=== PATIENT | female | born 1935 | race Caucasian/White ===

== ENCOUNTER 2020-04-06 18:55 | Emergency (ER) | payer OTHER ==
[~2020-04-06] VITALS: Ht 165.1 cm; Wt 63.5 kg
--- NOTE | ~2020-04-06 | EMS ---
[address] [address] EMS Patient Care Report Name: MIKI BARCENAS Room #: PRE M.R.#: [id number] Admission: Attend Phys: Discharge: Date of : 39 Report #: [id number] THIS REPORT FOR: //name// Report Transmitted: 04/06/2020 18:57 EMS Care Summary [facility] Incident [id number] @ 04/06/2020 18:17 Incident Location [address] [place] [address] Patient MIKI BARCENAS Female, 84 Years 1935 Patient Address [address] [place] [address] Patient History Dementia,Hypertension (HTN),Hyperlipidemia,Depression, Patient Allergies Codeine,Tramadol, Patient Medications Acetaminophen, Trazodone, Amlodipine, Donepezil, Omeprazole, Citalopram, Lovastatin, Chief Complaint "she fell" Disposition Transported No Lights/[place] Dispatch Reason Falls Transported To [facility] Narrative EMS dispatched to a local nursing home home. Upon arrival, EMS is guided to the patients room where she's being assisted by the local fire department. The local fire department relays the patient had an unwitnessed fall from standing [address] [address] EMS Patient Care Report Name: MIKI BARCENAS Room #: PRE Zuhair#: [id number] Admission: Attend Phys: Discharge: Date of : 39 Report #: [id number] height because she "got tripped up on her feet". She didn't lose consciousness and remembers the whole thing. However, she is slightly confused but that's normal for her. The administrative staff supervisor relays that story is correct. The fire department also relays the patient "knocked out a few teeth". The patient is able to communicate with EMS. However, she's very upset and hard to console. When she's able to answer she states she "hurts on the inside of the mouth" and states the reason she fell is because she "got my feet mixed up". Initial assessment is performed on pt by the local fire department. The pt's teeth are placed in a bag of milk. Cervical spine precautions are taken and towel roll is placed. The patient is able to stand and pivot to cot where secured. The patient is moved to MICU where secured. The patient's vitals are monitored en route to local hospital with no change. Report is given to RN and care is transferred without incident. Initial Vitals @18:49P: 84,SpO2: 79, @18:50P: 86,R: 16,BP: 163/107,Pain: 0/10,GCS: 14,SpO2: 98,Revised Trauma: 12, @18:42P: 87,R: 16,BP: 164/77,Pain: 6/10,GCS: 15,Temp: 98F,SpO2: 97,Revised Trauma: 12, Assessments @18:45MENTAL:Person Oriented,Time Oriented,Place Oriented,Event Oriented,SKIN:HEENT:Head/Face: Other,LUNG SOUNDS:General: No Abnormalities,ABDOMEN:General: No Abnormalities,PELVIS//GI:No Abnormalities,EXTREMITIES:Right Arm: Other,Left Arm: No Abnormalities,Left Leg: No Abnormalities,Right Leg: No Abnormalities,PULSE:NEURO:@19:00 Impression Injury of Face Procedures @18:30Surgical Mask on PatientResponse: Unchanged@18:32Spinal Motion RestrictionResponse: UnchangedSucceeded Timeline 18:15,Call Received 18:15,Psap Call 18:17,Dispatched 18:18,En Route 18:27,On Scene 18:30,At Patient 18:30,Surgical Mask on Patient,Response: Unchanged 18:32,Spinal Motion Restriction,Response: UnchangedSucceeded, 18:40,Depart Scene [facility] [address] [place] [address] EMS Patient Care Report Name: MIKI BARCENAS Room #: PRE M.R.#: [id number] Admission: Attend Phys: Discharge: Date of : 39 Report #: [id number] 18:42,BP: 164/77 M,PULSE: 87,RR: 16 R,SPO2: 97 Ox,ETCO2: ,BG: ,PAIN: 6,GCS: 15, 18:49,BP: / M,PULSE: 84,RR: R,SPO2: 79 Ox,ETCO2: ,BG: ,PAIN: ,GCS: , 18:49,At Destination 18:50,BP: 163/107 M,PULSE: 86,RR: 16 R,SPO2: 98 Ox,ETCO2: ,BG: ,PAIN: 0,GCS: 14, 19:07,Call Closed Disclaimer v1.1 Copyright 2020 [employer] This EMS Care Summary contains data elements from the applicable legal record (which may be displayed differently). It is designed to provide pertinent information for the following purposes: continuity of care, clinical quality, and state data reporting. The complete legal record is available to ED staff and administrators of the receiving hospital in [employer]'s Patient Tracker. All data is provided "as is."
[2020-04-06 19:53] LABS: URINE BILIRUBIN NEGATIVE (Negative); URINE BLOOD NEGATIVE (Negative); URINE CLARITY CLEAR; URINE COLOR YELLOW; URINE GLUCOSE-RANDOM* NEGATIVE (Negative); URINE KETONES NEGATIVE (Negative); URINE LEUKOCYTES-REFLEX TRACE (Negative); URINE NITRITE-REFLEX NEGATIVE (Negative); URINE PROTEIN (DIPSTICK) NEGATIVE (Negative); URINE SPECIFIC GRAVITY 1.025 (1.005-1.035)
[2020-04-06 20:24] LABS: ABSOLUTE NEUTROPHILS 9.2 thou/uL (1.4-8.2); BASOPHILS 0.5 % (0.0-2.0); EOSINOPHILS 1.1 % (0.0-3.0); HEMATOCRIT 39.1 % (37.0-47.0); HEMOGLOBIN 12.9 gm/dL (12.0-15.0); LYMPHOCYTES 9.4 % (24.0-44.0); MCH 29.9 pg (26.0-34.0); MCV 90.8 fL (80.0-100.0); MONOCYTES 10.7 % (1.0-8.0); PLATELET COUNT 298 thou/uL (150-400); POLYS 78.3 % (36.0-66.0); RDW 14.2 % (10.5-14.5); WBC 11.8 thou/uL (4.0-11.0)
[2020-04-06 20:28] LABS: CALCIUM 9.3 mg/dL (8.5-10.1); CREATININE 0.7 mg/dL (0.6-1.0); POTASSIUM 3.8 mmol/L (3.5-5.1)
[2020-04-06 20:35] LABS: ALBUMIN 3.8 g/dL (3.4-5.0); TOTAL BILIRUBIN 0.4 mg/dL (0.2-1.0); TOTAL PROTEIN 7.4 g/dL (6.4-8.2)
[2020-04-06] MEDS ORDERED: KEFLEX500 M1 PO (22:16)
[2020-04-06] MEDS ORDERED: NORCO 5-325 TA1 EAC2 PO (22:16)
[2020-04-07 01:12] VITALS: BP 114/50
== END 2020-04-07 01:29 | disposition home or self-care (01) ==
LOC: ER 18:55
PROVIDERS: Physician Assistant
DX: S02.2XXA Fracture of nasal bones, initial encounter for closed fracture (principal); S01.511A Laceration without foreign body of lip, initial encounter; S03.2XXA Dislocation of tooth, initial encounter; M25.512 Pain in left shoulder; M79.642 Pain in left hand; I10 Essential (primary) hypertension; F03.90 Unspecified dementia, unspecified severity, without behavioral disturbance, psychotic disturbance, mood disturbance, and anxiety; F41.9 Anxiety disorder, unspecified; K21.9 Gastro-esophageal reflux disease without esophagitis; W07.XXXA Fall from chair, initial encounter; Y93.89 Activity, other specified; Y92.128 Other place in nursing home as the place of occurrence of the external cause; Y99.8 Other external cause status